=== PATIENT | male | born 1985 | race Caucasian/White ===

== ENCOUNTER 2017-01-28 09:34 | Emergency (ER) | payer SELFPAY ==
[~2017-01-28] VITALS: Ht 167.6 cm; Wt 67.0 kg
[~2017-01-28 09:34] MED LIST: CIPR500T4 PO; NAPR500 PO; TAMS0.4C67 PO
[2017-01-28 09:35] VITALS: BP 128/79; PULSE 70; RESP 20; TEMP 98.8; O2SAT 98
[2017-01-28] MEDS ORDERED: KETOROLAC TROMETHAMINE 60 MG/2 ML (IM) VIAL IM ONE (10:15)
--- NOTE | 2017-01-28 10:19 | PD ---
HPI Chief Complaint: Complaint Time Seen by Provider: 10:00 Travel History International Travel<30 days: No Contact w/Intl Traveler<30days: No Traveled to known affect area: No History of Present Illness HPI 32-year-old male patient presents to the emergency department for evaluation of left testicle pain. Patient states the pain had a sudden onset this morning after taking a bowel movement and the pain is constant and radiates into his lower abdomen; there are no relieving factors at this time. Patient stated the sudden onset of the pain made him feel nauseous but he did not vomit. Patient states this has never happened before and he does not have any history of STI' s. Patient denies any major medical history or other physiological complaints. Patient denies any chest pain, shortness of breath, fever, chills, malaise or lightheadedness. He currently does not take any medication. [facility] Past Medical History Medical History: Denies Significant Hx Influenza Vaccination: No Past Surgical History Surgical History: No Previous Surgery Social History Alcohol Use: No Tobacco Use: Yes (1/2 PPD) Substance Use: Yes (Marijuana daily ) Allergies-Medications (Allergen,Severity, Reaction): Coded Allergies: No Known Allergies (Unverified , 01/28/17) Reported Meds & Prescriptions Reported Meds & Active Scripts Active No Active Prescriptions or Reported Medications Review of Systems Except as stated in HPI: all other systems reviewed are Neg Physical Exam Narrative GENERAL: Well-nourished well-developed 32-year-old male who appears to be in no acute distress SKIN: Focused skin assessment warm/dry. HEAD: Atraumatic. Normocephalic. EYES: Pupils equal and round. No scleral icterus. No injection or drainage. ENT: No nasal bleeding or discharge. Mucous membranes pink and moist. NECK: Trachea midline. No JVD. CARDIOVASCULAR: Regular rate and rhythm. No murmur appreciated. RESPIRATORY: No accessory muscle use. Clear to auscultation. Breath sounds equal bilaterally. GENITOURINARY: Circumcised. Testes descended bilaterally without evidence of rotation. No lesions or erythema. No urethral discharge. Negative Prehn's test. Cremasteric reflex intact bilaterally. GASTROINTESTINAL: Abdomen soft, non-tender, nondistended. Hepatic and splenic margins not palpable. MUSCULOSKELETAL: No obvious deformities. No clubbing. No cyanosis. No edema. NEUROLOGICAL: Awake and alert. No obvious cranial nerve deficits. Motor grossly within normal limits. Normal speech. PSYCHIATRIC: Appropriate mood and affect; insight and judgment normal. Data Data Last Documented VS Vital Signs Date Time Temp Pulse Resp B/P (MAP) Pulse Ox O2 Delivery O2 Flow Rate FiO2 01/28/17 09:35 98.8 70 20 128/79 (95) 98 Room Air Orders Orders Us Testicles W Doppler (01/28/17 ) Ketorolac Inj (Toradol Inj) (01/28/17 10:15) MDM Medical Decision Making Medical Screen Exam Complete: Yes Emergency Medical Condition: Yes Medical Record Reviewed: Yes Differential Diagnosis Differential diagnoses include but are not limited to Testicle torsion, epididymitis, hydrocele, orchitis Narrative Course 32-year-old male patient presents to the emergency department for evaluation of sudden onset of left testicle pain. Patient states the sudden onset of the pain made him nauseous but he has not vomited. Patient states nothing like this is ever happened to him before and he does not have any history of STI's. Patient has voided subsequent to the pain starting. Patient states that he urinated normally and did not experience any any dysuria. Patient denies any chest pain, shortness breath, fever, chills, malaise, dysuria or lightheadedness. Ultrasound of left testicle ordered and pending. Patient given 60 mg IM Toradol for pain relief. Ultrasound of the left testicle reveals 1. No acute finding is identified to explain the clinical symptoms. There bilateral varicoceles, left larger than right. 2. Small right hydrocele. Patient case discussed with my attending, Dr. Robison and due to the patient's age, clinical symptoms, stated lifestyle and physical exam patient will be treated for epididymitis. Patient will be discharged home with prescription for Cipro 500 mg by mouth twice a day 10 days for infection and tramadol 50 mg by mouth every 6 hours for pain. Diagnosis Primary Impression: Epididymitis Ruled Out: Torsion of left testicle Referrals: Primary Care Physician Patient Instructions: Epididymitis (ED), General Instructions Additional Instructions: Take full course of antibiotics until complete. Take tramadol as directed as needed for pain. May use ice as needed to reduce swelling and pain. Return to the emergency department with any worsening condition or new emergent conditions. Med/Other Pt SpecificInfo: Prescription(s) given Scripts Tramadol (Tramadol) 50 Mg Tab 50 MG PO Q6H Y for PAIN, #10 TAB 0 Refills Prov: Hanane Clarke 01/28/17 Ciprofloxacin (Cipro) 500 Mg Tab 500 MG PO BID for Infection for 10 Days, #20 TAB 0 Refills Prov: Hanane Clarke 01/28/17 Disposition: 01 DISCHARGE HOME Condition: Stable Hanane Clarke Jan 28, 2017 10:19
--- NOTE | 2017-01-28 10:31 | PD ---
Physical Exam Date Seen by Provider: Jan 28, 2017 Narrative This patient presents with a chief complaint of acute left testicular pain. Please see Hanane Kelley's note for full details. Data Data Last Documented VS Vital Signs Date Time Temp Pulse Resp B/P (MAP) Pulse Ox O2 Delivery O2 Flow Rate FiO2 01/28/17 09:35 98.8 70 20 128/79 (95) 98 Room Air Orders Orders Us Testicles W Doppler (01/28/17 ) Ketorolac Inj (Toradol Inj) (01/28/17 10:15) MDM Supervised Visit with CHRISTOPHER: Yes Narrative Course I, Dr. Robison, have reviewed the advance practice practitioner's documentation and am in agreement, met with the patient face to face, made the diagnosis, and the medical decision making was done by me. *My assessment and Findings: Left testicle is markedly tender. There is no swelling. There is tenderness in the epididymis as well as the testicle. He has a fullness in the left scrotal area in the area of the epididymis. It is a boggy fullness which has been there for a while according to the patient. No hernia noted. Ultrasound is pending to rule out torsion. My clinical impression is that he has epididymitis acutely and a hydrocele chronically. Scripts No Active Prescriptions or Reported Meds Annalisa Robison MD Jan 28, 2017 10:31
--- NOTE | 2017-01-28 11:27 | RADRPT ---
EXAM DATE/TIME: 01/28/2017 10:29 [facility] COMPARISON: CT ABDOMEN & PELVIS W/O CONTRAST, February 06, 2016, 22:35. INDICATIONS : Testicular pain. MEDICAL HISTORY : Left testicular pain. SURGICAL HISTORY : None. ENCOUNTER: Initial ACUITY: 1 day PAIN SCORE: 4/10 LOCATION: Bilateral testicles. MEASUREMENTS: RIGHT TESTICLE: 4.0 x 2.8 x 2.3cm LEFT TESTICLE: 4.1 x 2.9 x 2.1cm FINDINGS: RIGHT TESTICLE: Homogeneous echotexture without intra or extratesticular mass. Blood flow is symmetric and within no rmal limits. There is a small hydrocele and varicocele. Epididymis demonstrates no acute finding. LEFT TESTICLE: Homogeneous echotexture without intra or extratesticular mass. Blood flow is symmetric and within no rmal limits. No hydrocele. There is a varicocele. Epididymis is within normal limits. SCROTUM: Within normal limits. CONCLUSION: 1. No acute finding is identified to explain the clinical symptoms. There bilateral varicoceles, left larger than right. 2. Small right hydrocele. David Aranda MD on January 28, 2017 at 11:23 Board Certified Radiologist. This report was verified electronically.
[2017-01-28] MEDS ORDERED: TRAM50TA PO (11:38)
[2017-01-28] MEDS ORDERED: CIPR-9 PO (11:38)
== END 2017-01-28 12:34 | disposition home or self-care (01) ==
LOC: NEPD 09:34
DX: N45.1 Epididymitis (principal); N43.3 Hydrocele, unspecified; F17.210 Nicotine dependence, cigarettes, uncomplicated; F12.90 Cannabis use, unspecified, uncomplicated
CPT/HCPCS: 76870; 93975; 96372; 99285; J1885